=== PATIENT | male | born 1990 | race Two or more races ===

== ENCOUNTER 2019-10-30 03:27 | Emergency (ER) | payer SELFPAY ==
[~2019-10-30] VITALS: Ht 182.9 cm; Wt 81.6 kg
--- NOTE | 2019-10-30 03:33 | NUR ---
CALLED IN [facility], NO RESPONSE
--- NOTE | 2019-10-30 03:40 | NUR ---
CALLED IN [facility], NO RESPONSE
--- NOTE | 2019-10-30 04:02 | NUR ---
CALLED IN [facility], NO RESPONSE
--- NOTE | 2019-10-30 04:45 | NUR ---
PT IS ASLEEP IN [facility]
--- NOTE | 2019-10-30 05:50 | NUR ---
PT STILL ASLEEP IN [facility]
[2019-10-30 06:11] VITALS: BP 131/80
--- NOTE | 2019-10-30 07:02 | NUR ---
PATIENT GIVEN REFERRAL CLINICS FOR HIV TESTING.
== END 2019-10-30 07:02 | disposition home or self-care (01) ==
LOC: ER 03:27
DX: Z00.8 Encounter for other general examination (principal); F17.200 Nicotine dependence, unspecified, uncomplicated; Z59.0 Homelessness